=== PATIENT | female | born 1935 | race Caucasian/White ===

== ENCOUNTER 2022-06-25 15:39 | Emergency (ER) | payer OTHER ==
[~2022-06-25] VITALS: Ht 160 cm; Wt 64.0 kg
--- NOTE | 2022-06-25 15:40 | NUR ---
RECEIVEXD PT 86 YRS FEMALE FROM HOME C/O RECTALE BLEEDING X2TOAY X1 DAYS DINESES ACTIVE BLEEDING AT THIS TIME RESTINE AND OMFORTABLE AT THIS TIME
--- NOTE | 2022-06-25 16:30 | NUR ---
PT SEEN BY FOR EVMARVIN
--- NOTE | 2022-06-25 16:45 | NUR ---
No active rectale bleeding at this time
--- NOTE | 2022-06-25 17:15 | NUR ---
Patient discharged to home in stable condition. Written and verbal after care instructions given. Patient verbalizes understanding of instruction.
[2022-06-25 17:25] VITALS: BP 169/99
== END 2022-06-25 17:27 | disposition home or self-care (01) ==
LOC: ER 15:46
DX: K64.9 Unspecified hemorrhoids (principal); K62.5 Hemorrhage of anus and rectum; I10 Essential (primary) hypertension; Z87.442 Personal history of urinary calculi